=== PATIENT | male | born 1965 | race Caucasian/White ===

== ENCOUNTER 2017-10-21 13:36 | Outpatient (CLI) | payer BC ==
[~2017-10-21 13:36] MED LIST: Magnevist 469MG/ML 20 ML VIAL ONE
--- NOTE | 2017-10-22 09:22 | MRI ---
CERVICAL SPINE MRI WITH AND WITHOUT CONTRAST: INDICATION: Syringomyelia. Neck pain, right-sided. COMPARISON: No prior comparison imaging. FINDINGS: Spinal alignment is relatively well preserved. There is no evidence of compression fracture or acute marrow edema within the cervical spine. There is patient motion which distorts detail regarding the cervical spinal cord anatomy. There is a minimal round T2 hyperintensity at the central aspect of t he spinal cord measuring less than 2 within the realm of size for benign dilatation of central spinal canal at the C6 level. There is no pathologic intramedullary enhancement. Mild disk degenerative changes of the cervical spine are present, with multilevel mild disk-osteophyt e complex formation. There is resultant mild right ventral hemicord effacement at C5-6 and mild righ t foraminal stenosis. There is a right subarticular/foraminal zone disk protrusion which results in mild ventral right hemicord effacement as well as compression upon the right C7 nerve root. IMPRESSION: 1. Findings indicate benign dilatation of central spinal canal without evidence of associated pathol ogic intramedullary enhancement. 2. Disk degenerative disease as above most pronounced at right C6-7 level with associated compressio n upon the right C7 nerve root. Correlate for radiculopathic symptoms referable to this dermatomal d istribution. POS: [facility]
== END 2017-10-21 13:37 | disposition home or self-care (01) ==
LOC: SCSMRI 13:36
PROVIDERS: ATTEND Neurological Surgery
DX: M50.123 Cervical disc disorder at C6-C7 level with radiculopathy (principal); G95.0 Syringomyelia and syringobulbia
CPT/HCPCS: 72156; A9579

== ENCOUNTER 2018-12-09 12:51 | Outpatient (CLI) | payer BC ==
--- NOTE | 2018-12-09 14:08 | MRI ---
MRI CERVICAL SPINE: INDICATIONS: Cervical pain. TECHNIQUE: Multiplanar, multisequential imaging of the cervical spine obtained. FINDINGS: The cervical vertebrae maintain normal height and alignment. There is mild loss of disk space at C3- C4, C4-C5, and C5-C6. Mild degenerative osteophytes are seen from the anterior cervical vertebrae. At C2-C3, no significant abnormality. At C3-C4, there is a small focal disk protrusion centrally with mild spondylosis. This effaces the a nterior subarachnoid space and abuts the anterior cord. Mild left foraminal encroachment from uncina te hypertrophy. At C4-C5, no significant disk bulge or spondylosis. The anterior subarachnoid space is mildly efface d but is preserved. No significant foraminal narrowing. At C5-C6, there is asymmetric disk protrusion paracentrally and laterally, to the left, with associat ed spondylosis and uncinate hypertrophy. This asymmetric protrusion to the left appears to displace the exiting left C6 nerve root. There is left foraminal encroachment. There is mild impingement on the anterior cord, centrally and to the left. There is also uncinate hypertrophy on the right, with minimal foraminal narrowing on the right. At C6-C7, asymmetric disk osteophyte complex is seen paracentrally and laterally, to the right, with right foraminal encroachment. This complex appears to displace the exiting right C7 nerve root. At C7-T1, no significant abnormality. There is a focus of signal abnormality seen in the central cord, at C6, suggesting a small central sy rinx. Recommend further evaluation with post contrast MRI cervical spine to ensure there is no assoc iated cord lesion. IMPRESSION: 1. Abnormal disk bulge/protrusions with spondylosis at C5-C6 and C6-C7, with displacement of the ner ve roots, as described above. Spondylosis also noted impinging on the cord at C3-C4, as described. 2. Abnormal signal in the cervical cord at the C6 level suggests a focal syrinx. Further evaluation with post contrast MRI cervical spine is recommended. POS: [facility]
== END 2018-12-09 12:52 | disposition home or self-care (01) ==
LOC: BICMRI 12:51
PROVIDERS: ATTEND Neurological Surgery
DX: M50.30 Other cervical disc degeneration, unspecified cervical region (principal); M50.222 Other cervical disc displacement at C5-C6 level; M47.812 Spondylosis without myelopathy or radiculopathy, cervical region
CPT/HCPCS: 72141

== ENCOUNTER 2022-04-09 12:37 | Outpatient (CLI) | payer BC | END 2022-04-09 12:38 | disposition home or self-care (01) | LOC: TBSIIMAG 12:37 | PROVIDERS: ATTEND Neurological Surgery | DX: M54.12 Radiculopathy, cervical region (principal); Z98.1 Arthrodesis status | CPT/HCPCS: 72040 ==

== ENCOUNTER 2022-06-28 10:06 | Outpatient (CLI) | payer BC | END 2022-06-28 10:07 | disposition home or self-care (01) | LOC: RAD 10:06 | PROVIDERS: ATTEND Neurological Surgery | DX: M47.22 Other spondylosis with radiculopathy, cervical region (principal) | CPT/HCPCS: 72040 ==

== ENCOUNTER 2023-08-12 09:40 | Outpatient (CLI) | payer BC | END 2023-08-12 09:41 | disposition home or self-care (01) | LOC: SCSMRI 09:40 | PROVIDERS: ATTEND Neurological Surgery | DX: M50.30 Other cervical disc degeneration, unspecified cervical region (principal); M54.6 Pain in thoracic spine; M48.02 Spinal stenosis, cervical region; M47.812 Spondylosis without myelopathy or radiculopathy, cervical region; Z98.1 Arthrodesis status | CPT/HCPCS: 72050; 72141; 72146 ==